=== PATIENT | female | born 1970 | race American Indian/Alaskan Native ===

== ENCOUNTER 2021-10-07 10:14 | Outpatient (CLI) | payer OTHER ==
--- NOTE | 2021-10-07 11:25 | XRay Report ---
BILATERAL HANDS 2 VIEWS INDICATION: BILATERAL HAND PAIN. COMPARISON: None. IMPRESSION: There is borderline to mild osteopenia. No acute osseous abnormality, bone lesion or er osive joint pathology. The distal phalanx of the left thumb is absent consistent with previous amputa tion. The soft tissues are unremarkable. Signer Name: Esteban La Jr, MD Signed: 10/07/2021 11:21 AM Workstation Name: [id number]
== END 2021-10-07 10:15 | disposition home or self-care (01) ==
LOC: XRAY 10:14
PROVIDERS: ATTEND Internal Medicine
DX: M79.642 Pain in left hand (principal); M79.641 Pain in right hand